=== PATIENT | female | born 1965 | race Caucasian/White ===

== ENCOUNTER 2016-09-25 16:38 | Observation (INO) | payer MEDICARE ==
[~2016-09-25] VITALS: Ht 162.6 cm; Wt 63.0 kg
[2016-09-25 17:04] LABS: DAU SCREEN DISCLAIMER
[2016-09-25] MEDS ORDERED: RISP0.253 PO (17:20)
[2016-09-25] MEDS ORDERED: DIVA125T2 PO (17:20)
[2016-09-25] MEDS ORDERED: TRAZ50TA18 PO (17:20)
[2016-09-25 17:24] LABS: BLOOD UREA NITROGEN 14 mg/dL (7-18)
[2016-09-25 17:27] LABS: ACETAMINOPHEN < 2 mcg/mL (10-30)
[2016-09-25] MEDS ORDERED: NICOTINE 21 MG/24 HR PATCH.TD24 TD SCH (20:00)
[2016-09-25] MEDS ORDERED: LORazepam 1MG TABLET PO PRN (20:00)
[2016-09-25] MEDS ORDERED: DOCUSATE 100 MG CAPSULE PO PRN (20:00)
[2016-09-25] MEDS ORDERED: DIPHENHYDRAMINE 50 MG CAPSULE PO PRN (20:00)
[2016-09-25] MEDS ORDERED: POTASSIUM CHLORIDE 20 MEQ TAB.ER.PRT PO ONE (20:00)
[2016-09-25] MEDS ORDERED: ONDANSETRON ODT 4 MG PO PRN (20:00)
[2016-09-25] MEDS ORDERED: ACETAMINOPHEN 325 MG TABLET PO PRN (20:00)
[2016-09-25 20:26] LABS: HCG UR OBC PASS
[2016-09-25 20:36] VITALS: BP 148/95
[2016-09-26 06:49] LABS: BLOOD UREA NITROGEN 15 mg/dL (7-18)
[2016-09-26 08:13] VITALS: BP 154/83
[2016-09-26 19:21] VITALS: BP 130/88
[2016-09-27 07:45] VITALS: BP_SYST 163; BP_DIAS 103; BP_DIAS 96
[2016-09-27 12:20] VITALS: BP 147/92
== END 2016-09-27 14:20 ==
LOC: ED 16:48 → 3E 20:39
PROVIDERS: ADMIT Internal Medicine; ATTEND Internal Medicine
DX: T75.1XXA Unspecified effects of drowning and nonfatal submersion, initial encounter (principal); F20.9 Schizophrenia, unspecified; E87.6 Hypokalemia; F31.9 Bipolar disorder, unspecified; J44.9 Chronic obstructive pulmonary disease, unspecified; F32.9 Major depressive disorder, single episode, unspecified; Z91.14 Patient's other noncompliance with medication regimen; X71.0XXA Intentional self-harm by drowning and submersion while in bathtub, initial encounter; Y93.89 Activity, other specified; Y92.89 Other specified places as the place of occurrence of the external cause; Y99.8 Other external cause status
CPT/HCPCS: 36415; 80048; 80307; 80329; 81025; 82040; 85025; 99285; G0378; G0480

== ENCOUNTER 2018-07-18 15:47 | Emergency (ER) | payer MEDICARE, OTHER ==
[~2018-07-18] VITALS: Ht 165.1 cm; Wt 72.0 kg
[~2018-07-18 15:47] MED LIST: DIVA125T2 PO; RISP0.253 PO; TRAZ50TA66 PO
--- NOTE | 2018-07-18 16:01 | NUR ---
pt bib remsa for weakness and fatigue x4 days. per at , pt was tired, so he gave her a total of 8 energy drinks over the last 3 days. pt states she hasn't been awake enough to eat much and has only had about 1.5 quarts of water over the last 4 days. pt states last meth use was 5 days ago and last alcohol use was 40 oz of beer this afternoon. 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 pt connected to monitors. vss on ra. edmd assessment complete and orders received. pt up self with standby assist from to rr to collect ua sample. xr to bedside at this time. awaiting lab draw and ekg.
--- NOTE | 2018-07-18 16:08 | NUR ---
ua collected and sent. cxr complete. ekg to bs at this time.
[2018-07-18 16:35] LABS: BASOPHILS # (AUTO) 0.04 x10^3/uL (0-0.1); BASOPHILS % (AUTO) 1 % (0-1); EOSINOPHILS % (AUTO) 2 % (1-7); LYMPHOCYTES # (AUTO) 2.29 x10^3/uL (1-3.4); LYMPHOCYTES % (AUTO) 45 % (22-44); MD NO; MEAN CORPUSCULAR HEMOGLOBIN 29.4 pg (27.0-34.8); MEAN CORPUSCULAR VOLUME 86.5 fL (80-100); MEAN PLATELET VOLUME 8.1 fL (7.4-10.4); MONOCYTES # (AUTO) 0.24 x10^3/uL (0.2-0.8); MONOCYTES % (AUTO) 5 % (2-9); NEUTROPHILS # (AUTO) 2.37 x10^3/uL (1.8-6.8); NEUTROPHILS % (AUTO) 47 % (42-75); PLATELET COUNT 276 x10^3/uL (130-400); RED BLOOD COUNT 4.38 x10^6/uL (3.82-5.3); RED CELL DISTRIBUTION WIDTH 14.4 % (9.6-15.2)
[2018-07-18 16:40] LABS: MICROSCOPIC NOT IND
[2018-07-18 16:44] LABS: CULTURE INDICATED? NO
[2018-07-18 16:48] LABS: ALBUMIN 3.1 g/dL (3.4-5.0); ANION GAP 10 mmol/L (5-15); CALCIUM 8.1 mg/dL (8.5-10.1); CHLORIDE 113 mmol/L (98-107)
[2018-07-18 16:49] LABS: SALICYLATE LEVEL < 1.7 mg/dL (2.8-20.0)
[2018-07-18 16:53] LABS: AMPHETAMINE SCREEN, URINE Positive (Negative); BARBITURATE SCREEN, URINE Negative (Negative); BENZODIAZEPINE SCREEN, URINE Negative (Negative); CANNABINOID SCREEN, URINE Positive (Negative); COCAINE SCREEN, URINE Negative (Negative); METHADONE SCREEN, URINE Negative (Negative); OPIATE SCREEN, URINE Negative (Negative)
[2018-07-18 16:54] LABS: ALANINE AMINOTRANSFERASE 21 U/L (12-78); ALKALINE PHOSPHATASE 109 U/L (45-117); BILIRUBIN,TOTAL 0.3 mg/dL (0.2-1.0); CREATININE 0.66 mg/dL (0.55-1.02); TOTAL PROTEIN 6.8 g/dL (6.4-8.2); TROPONIN I < 0.015 ng/mL (0.000-0.045)
[2018-07-18 16:56] LABS: ACETAMINOPHEN < 2 mcg/mL (10-30)
--- NOTE | 2018-07-18 17:10 | NUR ---
EDMD TO BS TO UPDATE ON POC. PT RESTING IN ROOMW TIH AT BS. VSS. NO NEEDS EXPRESSED. CALL [facility] WITHIN REACH.
[2018-07-18 17:13] LABS: FREE T4 (FREE THYROXINE) 0.89 ng/dL (0.76-1.46)
[2018-07-18 18:15] VITALS: BP 107/64
--- NOTE | 2018-07-18 18:15 | NUR ---
BREAK RN: ASSUMED CARE FOR D/C ONLY Patient/Caregiver given discharge instructions and they have confirmed that they understand the instructions. Patient ambulatory with steady gait.
== END 2018-07-18 18:18 | disposition home or self-care (01) ==
LOC: ED 17:50
DX: F10.120 Alcohol abuse with intoxication, uncomplicated (principal); F15.10 Other stimulant abuse, uncomplicated; R07.9 Chest pain, unspecified; M79.10 Myalgia, unspecified site; R53.83 Other fatigue; J44.9 Chronic obstructive pulmonary disease, unspecified
CPT/HCPCS: 36415; 71045; 80053; 80307; 80329; 81003; 84439; 84443; 84484; 85025; 93005; 99284; G0480